=== PATIENT | female | born 1930 | race Caucasian/White ===

== ENCOUNTER 2020-09-05 20:22 | Observation (INO) | payer MEDICARE ==
[2020-09-05] MEDS ORDERED: KETOROLAC 15 MG/ML 1 ML VIAL IVP STA (20:44)
[2020-09-05] MEDS ORDERED: SODIUM CHLORIDE 0.9% 1,000 ML IV STA (20:44)
--- NOTE | 2020-09-05 20:47 | ED ---
General Adult HPI - General Source: patient, family Mode of arrival: wheelchair Limitations: no limitations <Anderson Tomlinson Milly - Last Filed: 09/05/20 20:58> <Jazmin Ricks Nerissa - Last Filed: 09/06/20 22:46> - General Chief complaint: Abdominal Pain Stated complaint: Side Pain Time Seen by Provider: 09/05/20 20:25 - History of Present Illness Initial comments: Dictation was produced using [employer] dictation software. please excuse any grammatical, word or spelling errors. This patient was cared for during a federal and state declared state of emergency secondary to Covid 19 Chief Complaint: 89-year-old female presents with right-sided flank pain History of Present Illness: Patient is an 89-year-old female she reports that she has history of kidney stones. Over the last 4 days she's been suffering from colicky right-sided flank pain. She went to [facility] where she was evaluated. She was sent home with antibiotics and by mouth analgesia. Patient states that her symptoms did not improve. She states that she has a sharp pain that causes her to be slightly nauseated and a little clammy in the skin. She states that last for several minutes and then donny. She is has been having c ontinuous episodes over the last 4 days. States that the pain is severe. No radiation of symptoms to the groin. Denies any constitutional symptoms. She believes that she was diagnosed with a kidney stone several years ago. She does not recall exactly when. The ROS documented in this emergency department record has been reviewed and confirmed by me. Those systems with pertinent positive or negative responses have been documented in the HPI. All other systems are other negative and/or noncontributory. PHYSICAL EXAM: General Impression: Alert and oriented x3, not in acute distress HEENT: Normocephalic atraumatic, extra-ocular movements intact, pupils equal and reactive to light bilaterally, mucous membranes moist. Cardiovascular: Heart regular rate and rhythm Chest: Able to complete full sentences, no retractions, no tachypnea Abdomen: abdomen soft, non-tender, non-distended, no organomegaly Musculoskeletal: Pulses present and equal in all extremities, no peripheral edema, no CVA tenderness Motor: no focal deficits noted Neurological: CN II-XII grossly intact, no focal motor or sensory deficits noted Skin: Intact with no visualized rashes Psych: Normal affect and mood ED course: 89-year-old female presents to the emergency department for flank pain. She's been having symptoms for 4 days. Patient's pain is described as colicky and severe. There is concern of kidney stones. Vital signs upon arrival are within acceptable limits. Patient states she's not having an attack currently. Patient care signed out to Dr. Ricks. (Anderson Tomlinson) - Related Data Home Medications Medication Instructions Recorded Confirmed traMADol HCL 50 mg PO Q6H PRN 09/05/20 09/05/20 Allergies Allergy/AdvReac Type Severity Reaction Status Date / Time hydrocodone AdvReac Nausea & Verified 09/05/20 23:03 Vomiting hydromorphone [From Dilaudid] AdvReac Nausea & Verified 09/05/20 23:03 Vomiting morphine AdvReac Nausea & Verified 09/05/20 23:03 Vomiting oxycodone AdvReac Nausea & Verified 09/05/20 23:03 Vomiting Review of Systems ROS Other: All systems not noted in ROS Statement are negative. <Anderson Tomlinson - Last Filed: 09/05/20 20:58> ROS Other: All systems not noted in ROS Statement are negative. <Jazmin Ricks - Last Filed: 09/06/20 22:46> ROS Statement: Those systems with pertinent positive or pertinent negative responses have been documented in the HPI. Past Medical History Past Medical History: No Reported History History of Any Multi-Drug Resistant Organisms: None Reported Past Surgical History: Unable to Obtain Past Psychological History: No Psychological Hx Reported Smoking Status: Never smoker Past Alcohol Use History: None Reported Past Drug Use History: None Reported <Anderson Tomlinson - Last Filed: 09/05/20 20:58> General Exam Limitations: no limitations <Anderson Tomlinson - Last Filed: 09/05/20 20:58> Course Vital Signs 09/05/20 09/05/20 09/05/20 20:23 22:11 23:00 Temperature 98.2 F Pulse Rate 77 77 68 Respiratory 22 16 16 Rate Blood Pressure 172/85 190/93 139/67 O2 Sat by Pulse 96 97 96 Oximetry Medical Decision Making - Lab Data Result diagrams: 09/06/20 07:02 09/06/20 07:02 <Ginette Ricksah Nerissa - Last Filed: 09/06/20 22:46> - Medical Decision Making Upon arrival patient is placed into room 1. A thorough history and physical exam was performed. Patient had been given Toradol by Dr. Tomlinson. She is reevaluated and reports that this has not helped her pain. She is then given a dose of fentanyl. I received the labs from [facility]. These are reviewed. I did repeat the patient's CT which fails to demonstrate any acute signs for the patient's pain. The patient is reevaluated and states that she did have resolution of her pain with the fentanyl however is concerned that when she goes home the pain will return. As the patient is failing outpatient therapy I did recommend admission for further workup and possible pain management options. Patient did agree to this. Spoke with Dr. Mata who accepted admission. Patient is awaiting a bed on the floor (Jazmin Ricks) - Lab Data Lab Results 09/05/20 09/05/20 09/05/20 Range/Units 20:44 20:44 20:44 WBC 10.9 H (3.8-10.6) k/uL RBC 4.69 (3.80-5.40) m/uL Hgb 14.3 (11.4-16.0) gm/dL Hct 43.5 (34.0-46.0) % MCV 92.8 (80.0-100.0) fL MCH 30.5 (25.0-35.0) pg MCHC 32.9 (31.0-37.0) g/dL RDW 12.6 (11.5-15.5) % Plt Count 180 (150-450) k/uL MPV 7.8 Neutrophils % 59 % Lymphocytes % 31 % Monocytes % 6 % Eosinophils % 2 % Basophils % 1 % Neutrophils # 6.4 (1.3-7.7) k/uL Lymphocytes # 3.4 (1.0-4.8) k/uL Monocytes # 0.6 (0-1.0) k/uL Eosinophils # 0.2 (0-0.7) k/uL Basophils # 0.1 (0-0.2) k/uL Sodium 141 (137-145) mmol/L Potassium 4.2 (3.5-5.1) mmol/L Chloride 105 (98-107) mmol/L Carbon Dioxide 25 (22-30) mmol/L Anion Gap 11 mmol/L BUN 19 H (7-17) mg/dL Creatinine 0.88 (0.52-1.04) mg/dL Est GFR (CKD-EPI)AfAm 68 (>60 ml/min/1.73 sqM) Est GFR (CKD-EPI)NonAf 59 (>60 ml/min/1.73 sqM) Glucose 82 (74-99) mg/dL Calcium 9.0 (8.4-10.2) mg/dL Urine Color Light Yellow Urine Appearance Clear (Clear) Urine pH 6.0 (5.0-8.0) Ur Specific [place] 1.008 (1.001-1.035) Urine Protein Negative (Negative) Urine Glucose (UA) Negative (Negative) Urine Ketones Negative (Negative) Urine Blood Negative (Negative) Urine Nitrite Negative (Negative) Urine Bilirubin Negative (Negative) Urine Urobilinogen <2.0 (<2.0) mg/dL Ur Leukocyte Esterase Trace H (Negative) Urine RBC 1 (0-5) /hpf Urine WBC 2 (0-5) /hpf Ur Squamous Epith Cells 1 (0-4) /hpf Amorphous Sediment Rare H (None) /hpf Urine Bacteria Rare H (None) /hpf Urine Mucus Rare H (None) /hpf Disposition <Anderson Tomlinson - Last Filed: 09/05/20 20:58> Is patient prescribed a controlled substance at d/c from ED?: No Decision to Admit Reason: Admit from EC Decision Date: 09/05/20 Decision Time: 23:12 <Jazmin Ricks - Last Filed: 09/06/20 22:46> Clinical Impression: Right flank pain, Lumbar facet arthropathy Disposition: ADMITTED IP TO THIS [facility] Condition: Stable
[2020-09-05 21:04] LABS: Basophils # (A) 0.1 k/uL (0-0.2); Basophils % (A) 1 %; Eosinophils # (A) 0.2 k/uL (0-0.7); Eosinophils % (A) 2 %; HCT 43.5 % (34.0-46.0); HGB 14.3 gm/dL (11.4-16.0); Lymphocytes # (A) 3.4 k/uL (1.0-4.8); Lymphocytes % (A) 31 %; MCH 30.5 pg (25.0-35.0); MCHC 32.9 g/dL (31.0-37.0); MCV 92.8 fL (80.0-100.0); Mean Platelet Volume 7.8; Monocytes # (A) 0.6 k/uL (0-1.0); Monocytes % (A) 6 %; Neutrophils # (A) 6.4 k/uL (1.3-7.7); Neutrophils % (A) 59 %; Platelet Count 180 k/uL (150-450); RBC 4.69 m/uL (3.80-5.40); RDW 12.6 % (11.5-15.5); WBC 10.9 k/uL (3.8-10.6)
[2020-09-05 21:11] LABS: Potassium 4.2 mmol/L (3.5-5.1)
[2020-09-05] MEDS ORDERED: fentaNYL (PF) 50 MCG/ML 2 ML AMP IVP STA (22:00)
[2020-09-05 22:16] LABS: Amorphous Sediment,Urine Rare /hpf; Appearance,Urine Clear (Clear); Bacteria,Urine Rare /hpf; Bilirubin,Urine Negative (Negative); Blood,Urine Negative (Negative); Color,Urine Light Yellow; Glucose,Urine (UA) Negative (Negative); Ketones,Urine Negative (Negative); Leukocyte Esterase,Urine Trace (Negative); Mucus,Urine Rare /hpf; Nitrite,Urine Negative (Negative); Protein,Urine Negative (Negative); RBC,Urine 1 /hpf (0-5); Specific Gravity,Urine 1.008 (1.001-1.035); Squamous Epithelial Cell,Urine 1 /hpf (0-4); Urobilinogen,Urine <2.0 mg/dL (<2.0); WBC,Urine 2 /hpf (0-5)
--- NOTE | 2020-09-05 22:54 | CT ---
EXAMINATION TYPE: CT abdomen pelvis w con DATE OF EXAM: 09/05/2020 COMPARISON: 10/27/2009 HISTORY: Side pain, radiating into back, difficulty walking. Hx back sx. CT DLP: 1208.6 mGycm Automated exposure control for dose reduction was used. CONTRAST: Performed with IV Contrast, patient injected with 100 mL of Isovue 300. Images obtained from the diaphragm to the floor the pelvis with IV contrast. There is minimal subsegmental atelectasis at the lung bases. There is no pleural effusion. Heart size is normal. There is no pericardial effusion. Liver spleen pancreas appear intact. The bile ducts are not dilated. There are clips from cholecystectomy. Stomach is intact. There is 8mm calcification of the diaphragmatic pleura on the right side adjacent to the liver not ch anged compared to old exam. There is no adrenal mass. Kidneys show satisfactory contrast opacification. There is no hydronephrosi s. Delayed images show normal renal excretion. Ureters are not dilated. There is no retroperitoneal a denopathy. There is 3 cm fat density mass on the anterior abdomen consistent with umbilical hernia fuentes rgery. Bladder distends smoothly. There are numerous diverticula in the sigmoid colon. I see no diverticulit is. There are surgical clips at the right colon. There is no ascites. There is no free air. There is a first-degree L5-S1 spondylolisthesis. There is L5 spondylolysis. There is no lumbar compre ssion fracture. There is disc space narrowing from L3 to S1. The bony pelvis is intact. Hip joints ar e intact. There is right hip prosthesis. IMPRESSION: Moderate colonic diverticulosis without diverticulitis. Fat density mass posterior to the umbilicus c ould relate to surgery or lipoma. There is right hemicolectomy. There is no sign of acute abdomen and pelvis.
[2020-09-05] MEDS ORDERED: DOCUSATE 100 MG CAP PO PRN (23:12)
[2020-09-05] MEDS ORDERED: Acetaminophen-Codeine 300-30mg TAB PO PRN (23:12)
[2020-09-05] MEDS ORDERED: MAGNESIUM HYDROXIDE 2,400 MG/10 ML CUP PO PRN (23:12)
[2020-09-05] MEDS ORDERED: KETOROLAC 15 MG/ML 1 ML VIAL IVP PRN (23:12)
[2020-09-05] MEDS ORDERED: NALOXONE 0.4 MG/ML 1 ML VIAL IV PRN (23:12)
[2020-09-05] MEDS ORDERED: IBUPROFEN 400 MG TAB PO PRN (23:12)
[2020-09-06] MEDS ORDERED: HYDROmorphone 1 MG/ML 1 ML SYRINGE IVP STA (00:24)
[2020-09-06] MEDS ORDERED: HYDROcodone/APAP 5-325MG 1 EACH TAB PO PRN (00:24)
[2020-09-06] MEDS ORDERED: ONDANSETRON 4 MG/2 ML VIAL IVP PRN (00:25)
[2020-09-06 07:26] LABS: Basophils % (A) 1 %; Eosinophils # (A) 0.2 k/uL (0-0.7); Eosinophils % (A) 3 %; HCT 42.5 % (34.0-46.0); HGB 13.8 gm/dL (11.4-16.0); Lymphocytes # (A) 2.9 k/uL (1.0-4.8); Lymphocytes % (A) 39 %; MCH 30.5 pg (25.0-35.0); MCHC 32.5 g/dL (31.0-37.0); Mean Platelet Volume 7.8; Monocytes # (A) 0.5 k/uL (0-1.0); Monocytes % (A) 7 %; Neutrophils # (A) 3.7 k/uL (1.3-7.7); Neutrophils % (A) 49 %; Platelet Count 158 k/uL (150-450); RBC 4.52 m/uL (3.80-5.40); WBC 7.4 k/uL (3.8-10.6)
[2020-09-06 07:45] LABS: Calcium 8.6 mg/dL (8.4-10.2); Potassium 4.4 mmol/L (3.5-5.1)
[2020-09-06 08:33] VITALS: RESP 19
--- NOTE | 2020-09-06 12:32 | P.HPIM ---
History of Present Illness This is a pleasant 89 years old female with no significant past medical history. Presents with right flank pain for 2 days She was at [facility] for lumbar radiculopathy with the same pain. Patient states that she has right flank to right lower back sharp pain that started , reflecting/10 nonradiating pain with no associated weakness or numbness. She went to [facility] where she was treated there over 2 days and on Sunday she is being discharged at that time her pain was 7/10. And Sunday her pain subsided, However to come back later on as 10 so she decided to come to [facility]. Currently patient rates her pain as 0/10. Patient denies any weakness or numbness or urine or bowel incontinence. She denies any other symptoms no chest pain or dyspnea or headache or weakness However patient complains from chronic low back pain for many years but different sensation at the same level of her right flank/low back pain she is coming on with, she sees a physician but she cannot remember the name for his low back pain and she has taken pain injection before Vitals are stable. Labs are unremarkable including CBC, INR, BMP, urine analysis. Coronavirus not detected CT of the abdomen and pelvis: No hydronephrosis, kidneys show satisfactory contrast opacification. No adrenal mass. Normal renal excretion. Ureters are not dilated. Diverticulosis without diverticulitis. There is L5 spondylolysis and L5-S1 spondylolisthesis. No compression fracture. Disc space narrowing from L3 to S1. Right flank pain History of back pain and radiculopathy Review of Systems CONSTITUTIONAL: No fever, no malaise, no fatigue. HEENT: No recent visual problems or hearing problems. Denied any sore throat. CARDIOVASCULAR: No orthopnea, PND, no palpitations, no syncope. PULMONARY: No shortness of breath, no cough, no hemoptysis. GASTROINTESTINAL: No diarrhea, no nausea, no vomiting, no abdominal pain. Normoactive bowel sounds. NEUROLOGICAL: No headaches, no weakness, no numbness. HEMATOLOGICAL: Denies any bleeding or petechiae. GENITOURINARY: Denies any burning micturition, frequency, or urgency. MUSCULOSKELETAL/RHEUMATOLOGICAL: Denies any joint pain, swelling, or any muscle pain. ENDOCRINE: Denies any polyuria or polydipsia. Past Medical History Past Medical History: No Reported History History of Any Multi-Drug Resistant Organisms: None Reported Past Surgical History: Section, Cholecystectomy, Hysterectomy, Orthopedic Surgery Additional Past Surgical History / Comment(s): Left hip, right shoulder, right middle finger, ear surgery Past Anesthesia/Blood Transfusion Reactions: No Reported Reaction Past Psychological History: No Psychological Hx Reported Smoking Status: Never smoker Past Alcohol Use History: None Reported Past Drug Use History: None Reported Medications and Allergies Home Medications Medication Instructions Recorded Confirmed Type traMADol HCL 50 mg PO Q6H PRN 09/05/20 09/05/20 History Allergies Allergy/AdvReac Type Severity Reaction Status Date / Time hydrocodone AdvReac Nausea & Verified 09/05/20 23:03 Vomiting hydromorphone [From Dilaudid] AdvReac Nausea & Verified 09/05/20 23:03 Vomiting morphine AdvReac Nausea & Verified 09/05/20 23:03 Vomiting oxycodone AdvReac Nausea & Verified 09/05/20 23:03 Vomiting Physical Exam Vitals: Vital Signs Temp Pulse Pulse Resp BP BP Pulse Ox 09/06/20 08:00 97.8 F 72 19 131/74 93 L 09/06/20 00:05 98.3 F 72 20 183/88 96 09/05/20 23:00 68 16 139/67 96 09/05/20 22:11 77 16 190/93 97 09/05/20 20:23 98.2 F 77 22 172/85 96 Intake and Output 09/05/20 09/06/20 09/06/20 22:59 06:59 14:59 Other: Weight 83.007 kg 83.007 kg GENERAL: The patient is alert and oriented x3, not in any acute distress. Well developed, well nourished. HEENT: Pupils are round and equally reacting to light. EOMI. No scleral icterus. No conjunctival pallor. Normocephalic, atraumatic. No pharyngeal erythema. No thyromegaly. CARDIOVASCULAR: S1 and S2 present. No murmurs, rubs, or gallops. PULMONARY: Chest is clear to auscultation, no wheezing or crackles. ABDOMEN: Soft, nontender, nondistended, normoactive bowel sounds. No palpable organomegaly. MUSCULOSKELETAL: No joint swelling or deformity. EXTREMITIES: No cyanosis, clubbing, or pedal edema. NEUROLOGICAL: Gross neurological examination did not reveal any focal deficits. SKIN: No rashes. no petechiae. Results CBC & Chem 7: 09/06/20 07:02 09/06/20 07:02 Labs: Abnormal Lab Results - Last 24 Hours (Table) 09/05/20 09/05/20 09/05/20 Range/Units 20:44 20:44 20:44 WBC 10.9 H (3.8-10.6) k/uL BUN 19 H (7-17) mg/dL Ur Leukocyte Esterase Trace H (Negative) Amorphous Sediment Rare H (None) /hpf Urine Bacteria Rare H (None) /hpf Urine Mucus Rare H (None) /hpf 09/06/20 Range/Units 07:02 WBC (3.8-10.6) k/uL BUN 20 H (7-17) mg/dL Ur Leukocyte Esterase (Negative) Amorphous Sediment (None) /hpf Urine Bacteria (None) /hpf Urine Mucus (None) /hpf Thrombosis Risk Factor Assmnt - Choose All That Apply Any of the Below Risk Factors Present?: No Other Risk Factors: Yes Each Risk Factor Represents 3 Points: Age 75 years or older Other congenital or acquired thrombophilia - If yes, enter type in comment: No Thrombosis Risk Factor Assessment Total Risk Factor Score: 3 Thrombosis Risk Factor Assessment Level: Moderate Risk Assessment and Plan Assessment: Right low back/flank pain, mostly related to L5-S1 spondylytic changes. Now completely resolved. Check renal ultrasound and orthopedic consult Degenerative disc disease Plan: This is a pleasant 89 years old female who presents with right flank/low back pain. Most likely it is related to her degenerative low back pain of L5 and S1 vertebral disc disease. Continue with pain management however patient currently is asymptomatic However we are going to check renal ultrasound although it looks most likely musculoskeletal pain Labs and medication were reviewed.. Continue same treatment. Continue with symptomatic treatment. Resume home medication. Monitor lytes and vitals. DVT and GI prophylaxis. Further recommendationsas per clinical course of the patient DVT prophylaxis: Subcutaneous heparin GI Prophylaxis: Pepcid PT/OT: Pending Prognosis is guarded
--- NOTE | 2020-09-06 13:27 | P.CNOR ---
History of Present Illness - [facility] Consult date: 09/06/20 Requesting physician: Bry E Mynor Consult reason: low back pain (Acute right-sided flank pain, improved) History of present illness: Patient is a very pleasant 89-year-old female who is seen and examined at bedside for further evaluation of right-sided flank pain. She had an episode of severe flank pain which started this past she presented to [facility] for further evaluation. Her pain had improved and she was discharged home. Her pain became severe yesterday, 09/05/2020, and she presented to [facility] for further evaluation. During her admission to the hospital her symptoms have completely resolved. She states her current pain as 0/10. She does not have any radiating pain. She denies any lower extremity weakness and radiculopathy bilaterally. Her back pain is currently well controlled. She states she does have a history of surgical intervention of her lumbar spine twice previously. She also admits to previous neurostimulator placement with removal of neurostimulator. She had follow-up with pain management approximately 1 year ago and had some injections at that time. Medicine is planning for the patient is discharged home today. Patient states she does not wish to have any surgical intervention or lumbosacral spine. She would be willing to follow further with pain management. Past Medical History Past Medical History: No Reported History History of Any Multi-Drug Resistant Organisms: None Reported Past Surgical History: Section, Cholecystectomy, Hysterectomy, Orthopedic Surgery Additional Past Surgical History / Comment(s): Left hip, right shoulder, right middle finger, ear surgery Past Anesthesia/Blood Transfusion Reactions: No Reported Reaction Past Psychological History: No Psychological Hx Reported Smoking Status: Never smoker Past Alcohol Use History: None Reported Past Drug Use History: None Reported Medications and Allergies Home Medications Medication Instructions Recorded Confirmed Type traMADol HCL 50 mg PO Q6H PRN 09/05/20 09/05/20 History Allergies Allergy/AdvReac Type Severity Reaction Status Date / Time hydrocodone AdvReac Nausea & Verified 09/05/20 23:03 Vomiting hydromorphone [From Dilaudid] AdvReac Nausea & Verified 09/05/20 23:03 Vomiting morphine AdvReac Nausea & Verified 09/05/20 23:03 Vomiting oxycodone AdvReac Nausea & Verified 09/05/20 23:03 Vomiting Physical Examination Physical exam: Patient is awake, alert, and oriented 3 Vital signs stable Good chest excursion with deep inspiration and expiration Abdomen soft nontender Examination of lumbar spine reveals skin is intact with no abrasions, lacerations, or bruises; no erythema, purulence or signs of infection Evidence of well-healed incision along the midline of the lumbar spine Dorsiflexion, plantarflexion, and extensor hallucis longus positive sustained bilaterally Lower extremity strength 5/5 bilaterally Straight leg test negative bilateral lower extremities Negative Lasegue's test bilaterally No signs or symptoms of DVT; no calf pain No pain with internal and external rotation of the hips bilaterally Neurovascularly intact Results Pertinent studies: CT the abdomen and pelvis taken on 09/05/2020: L2-3 disc protrusion and facet arthropathy resulting in spinal canal stenosis and L3-4 significant asymmetric degenerative disc disease; L4-5 significant asymmetric degenerative disc disease and vacuum disc phenomenon; L5-S1 spondylolisthesis, spondylolysis, degenerative disc disease, and vacuum disc phenomenon; degenerative scoliosis; during levels of spinal canal stenosis L3-S1; evidence of right total hip arthroplasty; evidence of right hemicolectomy; no sign of acute abdomen or pelvis - Labs Labs: Abnormal Lab Results - Last 24 Hours (Table) 09/05/20 09/05/20 09/05/20 Range/Units 20:44 20:44 20:44 WBC 10.9 H (3.8-10.6) k/uL BUN 19 H (7-17) mg/dL Ur Leukocyte Esterase Trace H (Negative) Amorphous Sediment Rare H (None) /hpf Urine Bacteria Rare H (None) /hpf Urine Mucus Rare H (None) /hpf 09/06/20 Range/Units 07:02 WBC (3.8-10.6) k/uL BUN 20 H (7-17) mg/dL Ur Leukocyte Esterase (Negative) Amorphous Sediment (None) /hpf Urine Bacteria (None) /hpf Urine Mucus (None) /hpf H & H 09/05/20 09/06/20 Range/Units 20:44 07:02 Hgb 14.3 13.8 (11.4-16.0) gm/dL Hct 43.5 42.5 (34.0-46.0) % Result Diagrams: 09/06/20 07:02 09/06/20 07:02 Assessment and Plan Assessment: Assessment: Right-sided flank pain completely resolved History of lumbar surgery 2 with history of neurostimulator placement and removal Degenerative scoliosis L5 spondylolysis L5-S1 spondylolisthesis Lumbar spinal canal stenosis Lumbar facet arthropathy Lumbar degenerative disc disease History right total hip arthroplasty (1) Lumbar degenerative disc disease Current Visit: Yes Status: Acute Code(s): M51.36 - OTHER INTERVERTEBRAL DISC DEGENERATION, LUMBAR REGION SNOMED Code(s): 95853839 (2) Degenerative scoliosis in adult patient Current Visit: Yes Status: Acute Code(s): M41.80 - OTHER FORMS OF SCOLIOSIS, SITE UNSPECIFIED SNOMED Code(s): 442586544 (3) Spondylolysis of lumbar region Current Visit: Yes Status: Acute Code(s): M43.06 - SPONDYLOLYSIS, LUMBAR REGION SNOMED Code(s): 654865519 (4) Spondylolisthesis, lumbosacral region Current Visit: Yes Status: Acute Code(s): M43.17 - SPONDYLOLISTHESIS, LUMBOSACRAL REGION SNOMED Code(s): 141009118 (5) Lumbar spinal stenosis Current Visit: Yes Status: Acute Code(s): M48.061 - SPINAL STENOSIS, LUMBAR REGION WITHOUT NEUROGENIC ARYA SNOMED Code(s): 86607396 (6) Lumbar facet arthropathy Current Visit: Yes Status: Acute Code(s): M47.816 - SPONDYLOSIS W/O MYELOPATHY OR RADICULOPATHY, LUMBAR REGION SNOMED Code(s): 513343207 (7) History of lumbar surgery Current Visit: Yes Status: Acute Code(s): Z98.890 - OTHER SPECIFIED POST PROCEDURAL STATES SNOMED Code(s): 960630332 (8) History of total right hip arthroplasty Current Visit: Yes Status: Acute Code(s): Z96.641 - PRESENCE OF RIGHT ARTIFICIAL HIP JOINT SNOMED Code(s): 107528752592 Plan: Plan: 1. After reviewing of imaging, physical examination the patient, and further discussion with the patient, we're not currently planning for any surgical intervention in regards to her lumbosacral spine. She does have significant degenerative changes throughout her lumbar spine with spondylolysis, spondylolisthesis, degenerative scoliosis, degenerative disc disease, facet ar thropathy, and spinal canal stenosis. She states she has previously undergone surgical intervention at her lumbar spine multiple times and states given her age she does not wish to discuss the possibility of any surgical intervention at her lumbar spine. Plus, her symptoms have completely resolved. She would be willing to work to through further evaluation with pain management. We did discuss we will plan for consultation with pain management prior to her discharge home today so they may help set up scheduling outpatient treatment and evaluation. Patient feels she is ready for discharge home today. From orthopedic spine standpoint, patient is cleared for discharge. We will plan have her follow up on an as-needed basis following her discharge from the hospital. 2. Patient currently waiting for consultation by pain management. 3. Patient will continue be seen and examined by medicine who is planning for discharge home today. Time with Patient: Greater than 30 (Including obtaining history, physical examination, reviewing of imaging, and dictation.)
--- NOTE | 2020-09-06 14:13 | US ---
EXAMINATION TYPE: US renals and bladder DATE OF EXAM: 09/06/2020 COMPARISON: CT 09/05/2020 CLINICAL HISTORY: right flank pain. Right flank pain EXAM MEASUREMENTS: Right Kidney: 9.5 x 4.0 x 3.8 cm Left Kidney: 9.4 x 3.7 x 2.9 cm Right Kidney: No hydronephrosis or masses seen, mild extrarenal pelvis noted incidentally Left Kidney: No hydronephrosis or masses seen Bladder: Anechoic Bilateral Jets seen: No just left jet. There is no evidence for hydronephrosis at this point in time. No nephrolithiasis is seen. No jose alberto s are identified. Cortical medullary differentiation is maintained. The urinary bladder is anechoic. IMPRESSION:
[2020-09-06 15:29] VITALS: BP 137/80; PULSE 69; TEMP 97.9
[2020-09-06] MEDS ORDERED: HEPARIN SODIUM,PORCINE 5,000 UNIT/ML 1 ML VIAL SQ SCH (21:00)
[2020-09-06] MEDS ORDERED: FAMOTIDINE 20 MG/2 ML VIAL IV SCH (21:00)
== END 2020-09-06 16:01 | disposition home or self-care (01) ==
LOC: EC 20:22 → 4SSUR 23:12
PROVIDERS: ADMIT Internal Medicine; ATTEND Internal Medicine
DX: R10.9 Unspecified abdominal pain (principal); M43.17 Spondylolisthesis, lumbosacral region; K57.90 Diverticulosis of intestine, part unspecified, without perforation or abscess without bleeding; M41.80 Other forms of scoliosis, site unspecified; M47.16 Other spondylosis with myelopathy, lumbar region; M47.26 Other spondylosis with radiculopathy, lumbar region; M48.061 Spinal stenosis, lumbar region without neurogenic claudication; M51.16 Intervertebral disc disorders with radiculopathy, lumbar region; M51.06 Intervertebral disc disorders with myelopathy, lumbar region; G89.29 Other chronic pain; Z88.5 Allergy status to narcotic agent; Z96.641 Presence of right artificial hip joint; Z90.710 Acquired absence of both cervix and uterus; Z87.442 Personal history of urinary calculi; Z20.822 Contact with and (suspected) exposure to COVID-19
CPT/HCPCS: 96375 ×2; 96374; 99285; 36415; 80048 ×2; 85025 ×2; 81001; 87635; 76770; 74177; G0378 ×2; J2405; J3010; J1170; J1885; Q9967

== ENCOUNTER 2020-09-09 16:11 | Emergency (ER) | payer MEDICARE ==
[2020-09-09 16:25] VITALS: TEMP 98.1
[2020-09-09] MEDS ORDERED: KETOROLAC 15 MG/ML 1 ML VIAL IM STA (17:01)
[2020-09-09] MEDS ORDERED: HYDROmorphone 0.5 MG/0.5 ML SYRINGE IM STA (18:30)
[2020-09-09] MEDS ORDERED: ONDANSETRON ODT 4 MG TAB PO STA (18:30)
--- NOTE | 2020-09-09 19:27 | ED ---
Back Pain HPI - General Source: patient Limitations: no limitations <Selina Covington - Last Filed: 09/09/20 20:02> <Jazmin Ricks - Last Filed: 09/10/20 13:31> - General Chief Complaint: Back Pain/Injury Stated Complaint: Revisit - Flank Pain Time Seen by Provider: 09/09/20 16:41 - History of Present Illness Initial Comments: 89-year-old feel presenting for right lower back pain. Patient states that she was recently at 2 hospitals right lower back pain she states they cannot find out what is wrong but think it is her muscles she states that she was fine until 1 PM today. Patient states that it is a sharp stabbing pain that increases with rotation or touching the area. She states she has been applying a heating pad. Patient states she has a lot of ALLERGIES to pain medications. Patient denies any hematuria fevers she denies any falls or trauma she denies a weakness sensation deficits of the lower extremities she denies any IV drug use cancer. She denies abdominal pain nausea vomiting chest pain or shortness of breath. Patient no additional complaints and upon arrival she appears well nontoxic (Selina Covington) - Related Data Home Medications Medication Instructions Recorded Confirmed traMADol HCL 50 mg PO Q6H PRN 09/05/20 09/05/20 Allergies Allergy/AdvReac Type Severity Reaction Status Date / Time hydrocodone AdvReac Nausea & Verified 09/09/20 16:26 Vomiting hydromorphone [From Dilaudid] AdvReac Nausea & Verified 09/09/20 16:26 Vomiting morphine AdvReac Nausea & Verified 09/09/20 16:26 Vomiting oxycodone AdvReac Nausea & Verified 09/09/20 16:26 Vomiting Review of Systems ROS Other: All systems not noted in ROS Statement are negative. <Selina Covington - Last Filed: 09/09/20 20:02> ROS Other: All systems not noted in ROS Statement are negative. <Jazmin Ricks - Last Filed: 09/10/20 13:31> ROS Statement: Those systems with pertinent positive or pertinent negative responses have been documented in the HPI. Past Medical History Past Medical History: No Reported History History of Any Multi-Drug Resistant Organisms: None Reported Past Surgical History: Section, Cholecystectomy, Hysterectomy, Orthopedic Surgery Additional Past Surgical History / Comment(s): Left hip, right shoulder, right middle finger, ear surgery Past Anesthesia/Blood Transfusion Reactions: No Reported Reaction Past Psychological History: No Psychological Hx Reported Smoking Status: Never smoker Past Alcohol Use History: None Reported Past Drug Use History: None Reported <Selina Covington - Last Filed: 09/09/20 20:02> General Exam Limitations: no limitations <Selina Covington - Last Filed: 09/09/20 20:02> - General Exam Comments Initial Comments: General: The patient is awake and alert, in no distress, and does not appear acutely ill. Eye: Pupils are equal, round and reactive to light, extra-ocular movements are intact. No nystagmus. There is normal conjunctiva bilaterally. No signs of icterus. Ears, nose, mouth and throat: There are moist mucous membranes and no oral lesions. Neck: The neck is supple, there is no tenderness or JVD. Cardiovascular: There is a regular rate and rhythm. No murmur, rub or gallop is appreciated. Respiratory: Lungs are clear to auscultation, respirations are non-labored, breath sounds are equal. No wheezes, stridor, rales, or rhonchi. Gastrointestinal: Soft, non-distended, non-tender abdomen without masses or organomegaly noted. There is no rebound or guarding present. No CVA tenderness. Musculoskeletal: Inspection of the cervical thoracic and lumbar spine there is no lesions. No midline tenderness patient has paraspinal tenderness along the lower drastic upper lumbar area. Normal ROM, no tenderness of the UE and LE bilaterally. Strength 5/5 of lower extremities bilaterally. Sensation intact of the lower external nares bilaterally including the saddle region. Radial and DP pulses equal bilaterally 2+. Neurological: A&O x 3. CN II-XII intact grossly, There are no obvious motor or sensory deficits. Coordination appears grossly intact. Speech is normal. Skin: Skin is warm and dry and no rashes or lesions are noted. Psychiatric: Cooperative, appropriate mood & affect, normal judgment. (Selina Covington) Course Vital Signs 09/09/20 09/09/20 16:23 19:50 Temperature 98.1 F Pulse Rate 101 H 83 Respiratory 20 16 Rate Blood Pressure 144/105 148/85 O2 Sat by Pulse 96 95 Oximetry Medical Decision Making <Selina Covington - Last Filed: 09/09/20 20:02> <Jazmin Ricks - Last Filed: 09/10/20 13:31> - Medical Decision Making No falls or trauma. No skin changes/ no vesicular lesions/redness. Patient has no midline tenderness, patient is neurovascularly intact. Patient's pain controlled after one IM dose of Dilaudid. After discussing case with attending provider refill patient is stable for discharge with outpatient pain management. Patient agreeable. 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 (Selina Covington) I was available for consultation in the emergency department. The history and physical exam were done by the midlevel provider. I was consulted for this patients care. I reviewed the case with the midlevel provider and based on their presentation of the patient, I agree with the assessment, medical decision making and plan of care as documented. Chart was dictated using [employer] dictation software. Attempts were made to correct any dictation errors however some typographical errors may persist. Patient was seen during a national state of emergency due to the Covid-19 pandemic. (Jazmin Ricks) Disposition Is patient prescribed a controlled substance at d/c from ED?: No Time of Disposition: 19:27 <Selina Covington - Last Filed: 09/09/20 20:02> <Jazmin Ricks - Last Filed: 09/10/20 13:31> Clinical Impression: Back pain Disposition: HOME SELF-CARE Condition: Good Instructions (If sedation given, give patient instructions): Acute Low Back Pain (ED) Additional Instructions: Please use medication as discussed. Please follow-up with family doctor in the next 2 days. Please return to emergency room if the symptoms increase or worsen or for any other concerns. Referrals: Lv Sánchez DO [Primary Care Provider] - 1-2 days
[2020-09-09 19:52] VITALS: BP 148/85; PULSE 83; RESP 16
== END 2020-09-09 19:53 | disposition home or self-care (01) ==
LOC: EC 16:11
DX: M54.5 Low back pain (principal)
CPT/HCPCS: 99283; 96372; J1885; J1170

== ENCOUNTER 2020-09-11 21:41 | Emergency (ER) | payer MEDICARE ==
[2020-09-11] MEDS ORDERED: HYDROmorphone 1 MG/ML 1 ML SYRINGE IVP STA (22:14)
[2020-09-11] MEDS ORDERED: ONDANSETRON 4 MG/2 ML VIAL IVP STA (22:14)
[2020-09-11] MEDS ORDERED: diphenhydrAMINE 50 MG/ML 1 ML VIAL IVP STA (22:14)
[2020-09-11] MEDS ORDERED: SODIUM CHLORIDE 0.9% 1,000 ML IV STA (22:14)
--- NOTE | 2020-09-11 22:17 | ED ---
General Adult HPI - General Chief complaint: Abdominal Pain Stated complaint: Abd Pain Source: patient, RN notes reviewed Mode of arrival: ambulatory Limitations: no limitations - History of Present Illness Initial comments: Patient is an 89-year-old female presents to emergency department complaining of right-sided flank pain. She'll that she went in and out of the emergency room with intractable pain. She does have an MRI scheduled for the . She does take at home tramadol but did not take any today until the pain started and got too great. She took 4 tramadol home. She was standing up in the room walking around trying to relieve the pain. Daughter noted that this is the worst it has been. She was not diagnosed with a kidney stone in any of her emergency dep artment visit. She stated that the pain was in her right side 10 out of 10 constant with no relief. 90 chest pain shortness of breath headache vomiting diarrhea constipation fever fatigue chills. - Related Data Home Medications Medication Instructions Recorded Confirmed traMADol HCL 50 mg PO Q6H PRN 09/05/20 09/05/20 Allergies Allergy/AdvReac Type Severity Reaction Status Date / Time hydrocodone AdvReac Nausea & Verified 09/11/20 21:52 Vomiting hydromorphone [From Dilaudid] AdvReac Nausea & Verified 09/11/20 21:52 Vomiting morphine AdvReac Nausea & Verified 09/11/20 21:52 Vomiting oxycodone AdvReac Nausea & Verified 09/11/20 21:52 Vomiting Review of Systems ROS Statement: Those systems with pertinent positive or pertinent negative responses have been documented in the HPI. ROS Other: All systems not noted in ROS Statement are negative. Past Medical History Past Medical History: No Reported History Additional Past Medical History / Comment(s): kidney function elevations, History of Any Multi-Drug Resistant Organisms: None Reported Past Surgical History: Section, Cholecystectomy, Hysterectomy, Orthopedic Surgery Additional Past Surgical History / Comment(s): Left hip, right shoulder, right middle finger, ear surgery Past Anesthesia/Blood Transfusion Reactions: No Reported Reaction Past Psychological History: No Psychological Hx Reported Smoking Status: Never smoker Past Alcohol Use History: None Reported Past Drug Use History: None Reported General Exam Limitations: no limitations General appearance: alert, in distress Head exam: Present: atraumatic, normocephalic, normal inspection Eye exam: Present: normal appearance, PERRL, EOMI. Absent: scleral icterus, conjunctival injection, periorbital swelling ENT exam: Present: normal exam, mucous membranes moist Neck exam: Present: normal inspection. Absent: tenderness, meningismus, lymphadenopathy Respiratory exam: Present: normal lung sounds bilaterally. Absent: respiratory distress, wheezes, rales, rhonchi, stridor Cardiovascular Exam: Present: regular rate, normal rhythm, normal heart sounds. Absent: systolic murmur, diastolic murmur, rubs, gallop, clicks GI/Abdominal exam: Present: soft, normal bowel sounds. Absent: distended, tenderness, guarding, rebound, rigid Extremities exam: Present: normal inspection, full ROM, normal capillary refill. Absent: tenderness, pedal edema, joint swelling, calf tenderness Back exam: Present: normal inspection, CVA tenderness (R) Neurological exam: Present: alert, oriented X3, CN II-XII intact Psychiatric exam: Present: normal affect, normal mood Skin exam: Present: warm, dry, intact, normal color. Absent: rash Course Vital Signs 09/11/20 09/11/20 09/11/20 21:45 22:47 23:55 Temperature 98.6 F Pulse Rate 88 77 Respiratory 18 20 16 Rate Blood Pressure 209/107 147/69 O2 Sat by Pulse 95 93 L Oximetry Medical Decision Making - Medical Decision Making 81-year-old female complaining of right flank pain. Labs, 1 L normal saline bolus, 1 mg of Dilaudid, 4 mg Zofran, 50 g Benadryl ordered.. Labs unremarkable. Case discussed with Dr. Farrell, decided patient could discharge home with follow-up to primary care and her scheduled MRI. - Lab Data Result diagrams: 09/11/20 22:44 09/11/20 22:44 Lab Results 09/11/20 09/11/20 09/11/20 Range/Units 22:44 22:44 22:44 WBC 11.4 H (3.8-10.6) k/uL RBC 5.37 (3.80-5.40) m/uL Hgb 16.2 H (11.4-16.0) gm/dL Hct 50.2 H (34.0-46.0) % MCV 93.5 (80.0-100.0) fL MCH 30.2 (25.0-35.0) pg MCHC 32.3 (31.0-37.0) g/dL RDW 13.1 (11.5-15.5) % Plt Count 223 (150-450) k/uL MPV 8.1 Neutrophils % 62 % Lymphocytes % 28 % Monocytes % 6 % Eosinophils % 3 % Basophils % 1 % Neutrophils # 7.0 (1.3-7.7) k/uL Lymphocytes # 3.2 (1.0-4.8) k/uL Monocytes # 0.6 (0-1.0) k/uL Eosinophils # 0.3 (0-0.7) k/uL Basophils # 0.1 (0-0.2) k/uL Sodium 139 (137-145) mmol/L Potassium 5.0 (3.5-5.1) mmol/L Chloride 102 (98-107) mmol/L Carbon Dioxide 24 (22-30) mmol/L Anion Gap 13 mmol/L BUN 17 (7-17) mg/dL Creatinine 1.04 (0.52-1.04) mg/dL Est GFR (CKD-EPI)AfAm 56 (>60 ml/min/1.73 sqM) Est GFR (CKD-EPI)NonAf 48 (>60 ml/min/1.73 sqM) Glucose 104 H (74-99) mg/dL Plasma Lactic Acid Ari 3.9 H* (0.7-2.0) mmol/L Calcium 10.1 (8.4-10.2) mg/dL Total Bilirubin 0.6 (0.2-1.3) mg/dL AST 56 H (14-36) U/L ALT 44 H (4-34) U/L Alkaline Phosphatase 53 (38-126) U/L Creatine Kinase 259 H (30-135) U/L Total Protein 8.2 (6.3-8.2) g/dL Albumin 4.9 (3.5-5.0) g/dL Urine Color Urine Appearance (Clear) Urine pH (5.0-8.0) Ur Specific Sc[place]ey (1.001-1.035) Urine Protein (Negative) Urine Glucose (UA) (Negative) Urine Ketones (Negative) Urine Blood (Negative) Urine Nitrite (Negative) Urine Bilirubin (Negative) Urine Urobilinogen (<2.0) mg/dL Ur Leukocyte Esterase (Negative) Urine RBC (0-5) /hpf Urine WBC (0-5) /hpf Ur Squamous Epith Cells (0-4) /hpf Hyaline Casts (0-2) /lpf Urine Mucus (None) /hpf 09/11/20 Range/Units 23:55 WBC (3.8-10.6) k/uL RBC (3.80-5.40) m/uL Hgb (11.4-16.0) gm/dL Hct (34.0-46.0) % MCV (80.0-100.0) fL MCH (25.0-35.0) pg MCHC (31.0-37.0) g/dL RDW (11.5-15.5) % Plt Count (150-450) k/uL MPV Neutrophils % % Lymphocytes % % Monocytes % % Eosinophils % % Basophils % % Neutrophils # (1.3-7.7) k/uL Lymphocytes # (1.0-4.8) k/uL Monocytes # (0-1.0) k/uL Eosinophils # (0-0.7) k/uL Basophils # (0-0.2) k/uL Sodium (137-145) mmol/L Potassium (3.5-5.1) mmol/L Chloride (98-107) mmol/L Carbon Dioxide (22-30) mmol/L Anion Gap mmol/L BUN (7-17) mg/dL Creatinine (0.52-1.04) mg/dL Est GFR (CKD-EPI)AfAm (>60 ml/min/1.73 sqM) Est GFR (CKD-EPI)NonAf (>60 ml/min/1.73 sqM) Glucose (74-99) mg/dL Plasma Lactic Acid Ari (0.7-2.0) mmol/L Calcium (8.4-10.2) mg/dL Total Bilirubin (0.2-1.3) mg/dL AST (14-36) U/L ALT (4-34) U/L Alkaline Phosphatase (38-126) U/L Creatine Kinase (30-135) U/L Total Protein (6.3-8.2) g/dL Albumin (3.5-5.0) g/dL Urine Color Yellow Urine Appearance Clear (Clear) Urine pH 6.0 (5.0-8.0) Ur Specific [place] 1.027 (1.001-1.035) Urine Protein Trace H (Negative) Urine Glucose (UA) Negative (Negative) Urine Ketones 1+ H (Negative) Urine Blood Trace H (Negative) Urine Nitrite Negative (Negative) Urine Bilirubin Negative (Negative) Urine Urobilinogen <2.0 (<2.0) mg/dL Ur Leukocyte Esterase Moderate H (Negative) Urine RBC 3 (0-5) /hpf Urine WBC 5 (0-5) /hpf Ur Squamous Epith Cells 2 (0-4) /hpf Hyaline Casts 1 (0-2) /lpf Urine Mucus Rare H (None) /hpf Disposition Clinical Impression: Right flank pain, Back pain Disposition: HOME SELF-CARE Condition: Stable Instructions (If sedation given, give patient instructions): Flank Pain (ED) Additional Instructions: Please return to the Emergency Department if symptoms worsen or any other concerns. Go to scheduled MRI appointment as planned. Take pain medication as prescribed throughout the day to avoid severe flareups. Increase oral fluid intake. Is patient prescribed a controlled substance at d/c from ED?: No Referrals: Lv Sánchez DO [Primary Care Provider] - 1-2 days Time of Disposition: 00:58
[2020-09-11 23:16] LABS: Albumin 4.9 g/dL (3.5-5.0); Calcium 10.1 mg/dL (8.4-10.2); Total Bilirubin 0.6 mg/dL (0.2-1.3); Total Protein 8.2 g/dL (6.3-8.2)
[2020-09-11 23:18] LABS: Basophils # (A) 0.1 k/uL (0-0.2); Basophils % (A) 1 %; Eosinophils # (A) 0.3 k/uL (0-0.7); Eosinophils % (A) 3 %; HCT 50.2 % (34.0-46.0); HGB 16.2 gm/dL (11.4-16.0); Lymphocytes # (A) 3.2 k/uL (1.0-4.8); Lymphocytes % (A) 28 %; MCH 30.2 pg (25.0-35.0); MCHC 32.3 g/dL (31.0-37.0); MCV 93.5 fL (80.0-100.0); Mean Platelet Volume 8.1; Monocytes # (A) 0.6 k/uL (0-1.0); Monocytes % (A) 6 %; Neutrophils % (A) 62 %; Platelet Count 223 k/uL (150-450); RBC 5.37 m/uL (3.80-5.40); RDW 13.1 % (11.5-15.5); WBC 11.4 k/uL (3.8-10.6)
[2020-09-12 00:54] LABS: Appearance,Urine Clear (Clear); Bilirubin,Urine Negative (Negative); Blood,Urine Trace (Negative); Color,Urine Yellow; Glucose,Urine (UA) Negative (Negative); Hyaline Casts,Urine 1 /lpf (0-2); Ketones,Urine 1+ (Negative); Leukocyte Esterase,Urine Moderate (Negative); Mucus,Urine Rare /hpf; Nitrite,Urine Negative (Negative); Protein,Urine Trace (Negative); RBC,Urine 3 /hpf (0-5); Specific Gravity,Urine 1.027 (1.001-1.035); Squamous Epithelial Cell,Urine 2 /hpf (0-4); Urobilinogen,Urine <2.0 mg/dL (<2.0); WBC,Urine 5 /hpf (0-5)
[2020-09-12 01:30] VITALS: BP 137/61; PULSE 72; RESP 20; TEMP 98
== END 2020-09-12 01:15 | disposition home or self-care (01) ==
LOC: EC 21:41
DX: R10.9 Unspecified abdominal pain (principal); M54.9 Dorsalgia, unspecified
CPT/HCPCS: 36415; 80053; 82550; 83605; 85025; 81001; 99284; 96374; 96375; 96361; J1200; J2405; J1170

== ENCOUNTER → 2020-09-14 | Outpatient (CLI) | payer MEDICARE ==
--- NOTE | 2020-09-14 22:29 | MR ---
EXAMINATION TYPE: MR lumbar spine wo con DATE OF EXAM: 09/14/2020 COMPARISON: CT abdomen and pelvis September 05, 2020. HISTORY: Pain TECHNIQUE: Multiplanar, multisequence imaging of the lumbar spine is performed without IV contrast. I V contrast not given its exam was terminated prematurely in technologist with cytopathology technologist noted retained stimulator lead fragment. FINDINGS: Sagittal images of the lumbar spine show vertebral body heights to remain satisfactory. Per sistent slight levoconvex scoliotic curvature centered at L3 level with dextroconvex scoliosis greate r at lumbosacral junction. Bilateral pars defect L5 level seen better on CT with severe grade 1 anter olisthesis L5 on S1 redemonstrated. Multilevel disc desiccation. Moderate to advanced disc space narr owing greatest right L3-L4 level heterogeneous Modic type II endplate changes. Moderate disc space na rrowing at L5-S1 level. The conus medullaris is normal in position and signal ending mid L1 level. He terogeneous Modic type II endplate changes throughout the mid to lower lumbar spine. Susceptibility a rtifact posterior to lower lumbar spine noted correlates with retained stimulator fragment in the sub cutaneous tissue. Axial images show T12-L1 and L1-L2 levels to appear within normal limits. Axial images at L2-L3 level show mild/moderate facet degenerative changes and ligamentum flavum hyper trophy bilaterally effacing posterior lateral thecal sac and [id number] broad disc bulge effaci ng the anterior thecal sac. Mild bilateral anterior inferior neural foraminal narrowing is present. Axial images at L3-L4 level shows subtle anterolisthesis of L3 on L4 with moderate broad-based forester aide ior disc protrusion effacing anterior thecal sac and [id number] facet degenerative changes and ligamentum flavum hypertrophy causing posterior lateral thecal sac. There is moderate right and mild left-sided neural foraminal narrowing. Axial images at L4-L5 level show moderate to advanced facet degenerative changes bilaterally. There i s moderate broad-based posterior disc protrusion mildly effacing the anterior thecal sac. There is mi ld right and moderate to advanced left-sided neural foraminal narrowing noted. Axial images at L5-S1 level show significant spondylolisthesis with broad-based posterior disc protru belkys. There is advanced facet arthropathy bilaterally. There is moderate to severe bilateral neural f oraminal narrowing. There is partial visualization of left posterior lower thoracic subcutaneous stimulator lead. IMPRESSION: Suboptimal study. Persistent spondylolisthesis L5-S1 level. Multilevel degenerative gunn es as detailed above greatest L2-L3 through the L5-S1 levels.
== END ==
LOC: RADMRIMAIN 14:43
PROVIDERS: ATTEND Anesthesiology
DX: M43.17 Spondylolisthesis, lumbosacral region (principal); M47.817 Spondylosis without myelopathy or radiculopathy, lumbosacral region; M99.73 Connective tissue and disc stenosis of intervertebral foramina of lumbar region; M51.27 Other intervertebral disc displacement, lumbosacral region; M41.87 Other forms of scoliosis, lumbosacral region
CPT/HCPCS: 72148

== ENCOUNTER → 2020-09-22 | Outpatient (CLI) | payer MEDICARE ==
[2020-09-22 11:21] VITALS: BP 139/79; PULSE 81; RESP 16; TEMP 98.9
--- NOTE | 2020-09-22 12:26 | P.PAINCN ---
History of Present Illness - Reason for Consult Consult date: 09/22/20 - History of Present Illness This is 89 years old female with a chronic history of severe low back pain, started more than 10 years ago, but the intensity of the pain increased over the last few months, the pain is constant and increases with any activity interfere with the quality of life, she was admitted recently to [facility] because of severe low back pain and she was discharged home, patient had the MRI of the lumbar spine done showed multilevel lumbar degenerative disc disease and lumbar foraminal stenosis and lumbar spondylosis with lumbar facet arthropathy, she denies any fever or night sweats she denies any change in the bowel movement or urination Past Medical History Past Medical History: No Reported History, Cancer, CVA/TIA Additional Past Medical History / Comment(s): 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 History of Any Multi-Drug Resistant Organisms: None Reported Past Surgical History: Section, Cholecystectomy, Hysterectomy, Joint Replacement Additional Past Surgical History / Comment(s): total Left hip, right shoulder, right middle finger, ear surgery Past Anesthesia/Blood Transfusion Reactions: No Reported Reaction Past Psychological History: Depression Additional Psychological History / Comment(s): states "alittle depression" with covid restrictions Smoking Status: Former smoker Past Alcohol Use History: Rare Additional Past Alcohol Use History / Comment(s): quit smoking 51, smoked about 5 cigarettes /day, started age 16. Past Drug Use History: None Reported - Past Family History Mother Family Medical History: Cancer Father Family Medical History: Cancer Additional Family Medical History / Comment(s): colon cancer Sister(s) Family Medical History: Cancer Medications and Allergies Home Medications Medication Instructions Recorded Confirmed Type traMADol HCL 50 mg PO Q6H PRN 09/05/20 09/20/20 History Allergies Allergy/AdvReac Type Severity Reaction Status Date / Time hydrocodone AdvReac Nausea & Verified 09/20/20 14:13 Vomiting hydromorphone [From Dilaudid] AdvReac Nausea & Verified 09/20/20 14:13 Vomiting morphine AdvReac Nausea & Verified 09/20/20 14:13 Vomiting oxycodone AdvReac Nausea & Verified 09/20/20 14:13 Vomiting Physical Exam Vitals: Vital Signs Temp Pulse Resp BP Pulse Ox 09/22/20 11:17 98.9 F 81 16 139/79 95 Physical Examinations : -Constitutiona : Cooperative , not in acute distress . -HEENT : nech : supple , no Lymphadenopathy , normal thyroid size . : eyes : no ptosis , no icterus, no photophobia . - neurologic : Cranial nerve II to XII intact , no focal neurological deffecit . -psychatric : alert , oriented X 3 , appropriate affect , intact judgment and insight . -Lymphatic : no Lymphadenopathy . - musculoskeltal : Cervical Spine motor stregnth in the deltoid and biceps, normal right side , normal Left side motor stregnth biceps and the wrist extensors normal right side ,normal left side . motor stregnth in the triceps muscle . normal Right side , normal Left side deep tendon reflexes normal at the biceps , normal at Brachioradialis , normal at triceps. cervical facet loading test: Positive Bilaterally Spurling test= positive Right , positive left. Neck distraction test= positive Right , positive left. Gallo sign= positive right, positive left . Lumber spine moter stegnth lower extremities ,thigh and legs 5/5 Right side , 5/5 Left side deep tendon reflexes : normal Knee Jerk , normal ankle Jerk lumber facet Loading Test =positive Right , posiutive Left Range of motion of the lumbar spine Flexion 30 degrees, extension 10 degrees strait leg raising test = positive at 30 degree Fabere test= positive Right , and positive LT . Sever tenderness over the Sacroiliac joint on the Right , and Left sides Flexion and extension of the hip joint is associated with some pain more severe on the right side Results Comments: MRI of the lumbar spine = lumbar degenerative disc disease lumbar spondylosis with lumbar facet arthropathy, lumbar foraminal stenosis Lumbar spondylolisthesis Assessment and Plan Plan: Assessment and plan=1-lumbar spondylosis with lumbar facet arthropathy without myelopathy 2-lumbar degenerative disc disease. 3-lumbar stenosis. 4-lumbar spondylolisthesis. Patient would be good candidate diagnostic medial branch block lumbar area at L3, L4, L5, bilaterally and possible Time with Patient: Greater than 30 PQRS Measure Charge Sheet Measure #130: Documentation of Current Meds in Medical Chart: Patient's medications documented in chart Measure #226: Tobacco Use: Screen & Cessation Intervention: Pt not a tobacco user Measure #111: Pneumonia Vaccination: Pneumococcal vaccine NOT administered or previously given Measure #47: Advance Care Plan: Advance care planning discussed & documented, pt chose/unable to give Measure #412: Opioid Treatment Agreement: No documentation of signed opioid treatment agreement Measure #408: Opioid Therapy Follow-up Evaluation: Patient had NO f/u eval minimum every 3 months during opioid therapy Measure #317: Preventitive Care & Scrn High Bld Press & F/U: Normal blood pressure, f/u not required Measure #128: Body Mass Index (BMI) Screening & Follow-up: BMI documented ABOVE normal parameters - f/u documented Measure #131: Pain Assessment & Follow-up: Pain positive & plan documented, Follow-up scheduled Measure #431: Unhealthy Alcohol Use Preventative Care & Scrn: Patient not ident ified as an unhealthy alcohol user PQRS Narrative: Blood Pressure 139/79 Pain Intensity [Right] 0 Scale Used Numeric (1 - 10) Hx Alcohol Use (MH) No Home Medications: Ambulatory Orders traMADol HCL 50 mg PO Q6H PRN 09/05/20
== END ==
LOC: PNWHC3 11:04
PROVIDERS: ATTEND Specialist
DX: M47.816 Spondylosis without myelopathy or radiculopathy, lumbar region (principal); M48.061 Spinal stenosis, lumbar region without neurogenic claudication; M51.36 Other intervertebral disc degeneration, lumbar region; M43.16 Spondylolisthesis, lumbar region; F32.9 Major depressive disorder, single episode, unspecified; Z87.891 Personal history of nicotine dependence; Z86.73 Personal history of transient ischemic attack (TIA), and cerebral infarction without residual deficits
CPT/HCPCS: 99211

== ENCOUNTER 2020-10-15 09:36 | Day surgery (SDC) | payer MEDICARE ==
[2020-10-12 11:18] VITALS: BMI 29.8
[2020-10-15 10:13] VITALS: TEMP 98.5
[2020-10-15] MEDS: LACTATED RINGERS 1,000 ML IV SCH ×2 (10:30→10:48)
[2020-10-15] MEDS ORDERED: LIDOCAINE 1% (10MG/ML) FOR IV START INTRADERMA ONE (10:31)
[2020-10-15] MEDS ORDERED: methylPREDNISolone ACETATE 40 MG/ML 1 ML VIAL ONE (10:50)
[2020-10-15] MEDS ORDERED: ROPIVACAINE 5MG/ML 20ML VIAL ONE (10:50)
[2020-10-15] MEDS ORDERED: MIDAZOLAM 2 MG/2 ML VIAL ONE (10:51)
[2020-10-15] MEDS ORDERED: fentaNYL (PF) 50 MCG/ML 2 ML AMP ONE (10:51)
--- NOTE | 2020-10-15 11:10 | P.PCN ---
Date of Procedure: 10/15/20 Procedure(s) Performed: PREOPERATIVE DIAGNOSIS : 1- Lumbar spondylosis with Facet Arthropathy without myelopathy . 2- Lumber degenerative disc disease POSTOPERATIVE DIAGNOSIS: 1- Lumbar spondylosis with Facet Arthropathy without myelopathy . 2- Lumber degenerative disc disease PROCEDURE: Diagnostic bilateral L3 , L4 , and L5 medial branch block under fluoroscopy guidance(fluoroscopy images available in the radiology Department ) ( To target the facet joint between L4-5 , and L5-S1 ) ANESTHESIA: Monitored anesthesia care as per anesthesia department.. EBL: Minimal COMPLICATION: None PROCEDURE INDICATION: Chronic low back pain secondary to Facet arthropathy unresponsive to conservative treatment. PROCEDURE DESCRIPTION: the patient was seen and identified in the preop holding area , risks and benefits and possible complications of the procedure and alternative were discussed with the patient, and the patient agreed to proceed with the procedure and signed the consent and vital signs monitored during the procedure and fluoroscopy was used to maximize the benefit and accuracy of the needle placement, and sedation was given to decrease patient anxiety, patient was taken to the procedure room and placed in prone position vital signs monitored in the back prepped with chlorhexidine X3 then under strict sterile technique using a right oblique fluoroscopy ,the junction of the transverse process and the superior articulating process of the right L3 , L4 , and L5 vertebra which corresponding to the fluoroscopy image of the eye of the Jonny dog on the block side for the medial branches and subsequently , after local infiltration of skin and subcu tissuies with Ropivacaine 0.5 % , one mL at each level ,then 22-gauge Quincke-type needles , 3 needle was used , each one of them placed at the junction of the base of the transverse process and the superior articular process at the appropriate level, and the needle was advanced until the periosteum contacted, needle placement confirmed with AP oblique and lateral view and after appropriate needle placement confirmed, and after negative aspiration for heme and CSF and there was no paresthesia 1-1/2 mL of Ropivacaine 0.5% mixed with 20 mg Depo-Medrol , then half mL injected at each level after negative aspiration the needle subsequently removed and the same procedure repeated for the left side at left side at L3 , L4 and L5 levels. At the end of the procedure and the needles removed and a bandage applied after the skin was cleaned the cleaning solution patient taken to recovery room in stable condition and monitors in the recovery room for 20-30 minutes and discharged home in stable condition after discharge criteria met and patient will follow up with the pain clinic in 2-4 weeks
[2020-10-15] MEDS ORDERED: IV FLUID CONTINUATION 1,000 ML IV ONE ×2 (11:16)
--- NOTE | 2020-10-15 11:25 | FL ---
EXAMINATION TYPE: FL guided pain mgmt statistic DATE OF EXAM: 10/15/2020 HISTORY: Fluoroscopy time 12 seconds of fluoroscopy provided. IMPRESSION: 1. Fluoroscopy time.
[2020-10-15 11:32] VITALS: BP 115/72; PULSE 79; RESP 17
== END 2020-10-15 12:02 | disposition home or self-care (01) ==
LOC: ORPAIN 09:36
PROVIDERS: ATTEND Specialist
DX: G89.29 Other chronic pain (principal); M47.816 Spondylosis without myelopathy or radiculopathy, lumbar region; M51.36 Other intervertebral disc degeneration, lumbar region; M48.061 Spinal stenosis, lumbar region without neurogenic claudication; M43.16 Spondylolisthesis, lumbar region; I69.344 Monoplegia of lower limb following cerebral infarction affecting left non-dominant side; F32.9 Major depressive disorder, single episode, unspecified; Z85.828 Personal history of other malignant neoplasm of skin; Z86.010 Personal history of colon polyps; Z98.890 Other specified postprocedural states; Z90.49 Acquired absence of other specified parts of digestive tract; Z90.710 Acquired absence of both cervix and uterus; Z96.642 Presence of left artificial hip joint; Z87.891 Personal history of nicotine dependence; Z79.891 Long term (current) use of opiate analgesic; Z88.5 Allergy status to narcotic agent; Z97.2 Presence of dental prosthetic device (complete) (partial); Z80.0 Family history of malignant neoplasm of digestive organs; Z80.9 Family history of malignant neoplasm, unspecified
CPT/HCPCS: 64493; 64494; J2250; J1030; J3010; J2795

== ENCOUNTER → 2020-10-29 | Day surgery (SDC) | payer MEDICARE ==
[2020-10-28 11:22] VITALS: BMI 30.9
[~2020-10-29] MED LIST: IOPAMIDOL M200 10 ML VIAL ONE; LACTATED RINGERS 1,000 ML IV ONE; LIDOCAINE 1% (10MG/ML) FOR IV START INTRADERMA ONE; MIDAZOLAM 2 MG/2 ML VIAL ONE; ROPIVACAINE 5MG/ML 20ML VIAL ONE; TRIAMCINOLONE ACETONIDE 40 MG/ML 1 ML VIAL ONE; fentaNYL (PF) 50 MCG/ML 2 ML AMP ONE
[2020-10-29 08:31] VITALS: TEMP 96.8
--- NOTE | 2020-10-29 09:45 | FL ---
Fluoroscopy HISTORY: Pain 26 seconds fluoroscopy time supplied to the referring clinician. 3 intraoperative C-arm images docum ent the procedure. See dictated report from anesthesia.
[2020-10-29 09:47] VITALS: BP 144/70; PULSE 71; RESP 16
--- NOTE | 2020-11-10 15:48 | P.PCN ---
Date of Procedure: 10/29/20 Description of Procedure: PREOPERATIVE DIAGNOSIS : Lumbar spondylosis with Facet Arthropathy without myelopathy POSTOPERATIVE DIAGNOSIS: same PROCEDURE: second Diagnostic lumbar medial branch block with fluoroscopy at L3, L4, L5 [bilateral] which covers facets L4-5 and L5-S1 ANESTHESIA: Local anesthetic; moderate IV sedation Fluoroscopy was used for the procedure and images were saved in the radiology portion of the chart. Surgeon: Sidney Walker MD PROCEDURE INDICATION: Lumbar back pain without radiculopathy, not responsive to conservative management. PROCEDURE DESCRIPTION: the patient was seen and identified in the preop holding area , risks and benefits and possible complications of the procedure and alternatives were discussed with the patient, and the patient agreed to proceed with the procedure and signed the consent . IV was started , vital signs were monitored during the procedure and fluoroscopy was used to maximize the benefit and accuracy of the needle placement, and sedation was given to decrease patient anxiety. Patient was taken to the procedure room and placed in prone position. The lumbar region was prepped using chlorhexidineX-2. Under strict sterile technique using AP fluoroscopy the bilateral sacral ala were identified and using ipsilateral oblique fluoroscopy ,the junction of the transverse process and the superior articulating process of the L4, L5 vertebra which corresponds to the fluoroscopy image of the eye of the Jonny dog for the medial branches were identified. Subsequently, after local infiltration of skin with lidocaine 1% 0.2 mL at each level , a [22-gauge 5"/ 25-gauge 3.5"] Quincke- type needle was placed at the junction of the base of the transverse process and the superior articular process at the appropriate level as well as the sacral ala, and the needle was advanced until the periosteum contacted, needle placement confirmed with AP and oblique fluoroscopy, 0.2 mL of Isovue 200 per level was injected which revealed no vascular uptake and after negative aspiration. I malik up 5 mL of 0.5% ropivacaine and 1 mL of 40 mg/mL kenalog and injected 1 mL of this injectate at each level and the needle subsequently removed . A total of [2 levels injected bilaterally] At the end of the procedure and the needles were removed and a bandage applied after the skin was cleaned. The patient was taken to recovery room in stable condition and monitors in the recovery room for 20-30 minutes and discharged home in stable condition after discharge criteria met and patient will follow up in clinic in 2 weeks EBL: Minimal COMPLICATION: None.
== END ==
LOC: ORPAIN 07:56
PROVIDERS: ATTEND Anesthesiology
DX: M47.816 Spondylosis without myelopathy or radiculopathy, lumbar region (principal); Z86.73 Personal history of transient ischemic attack (TIA), and cerebral infarction without residual deficits; Z88.5 Allergy status to narcotic agent
CPT/HCPCS: 64493; 64494; J2250; J3301; J3010; Q9966; J2795

== ENCOUNTER → 2020-11-24 | Outpatient (CLI) | payer MEDICARE ==
--- NOTE | 2020-11-24 13:33 | P.PN ---
Subjective Progress Note Date: 11/24/20 This is an 89-year-old lady with history of lower back pain with occasional radiation to the left knee without paresthesia. The patient gets muscle spasm in the left leg which started after she had her stroke a few years ago. The patient denies any treated with anticoagulant currently she denies any history of diabetes. The patient failed to respond to spinal cord stimulation previously. She received 2 diagnostic lumbar medial branch blocks and she has significant re lief of her pain in the immediate period after her injection. She had at least 80% of pain relief. Patient denies new-onset weakness, bowel/bladder incontinence, or any other signs or symptoms of cauda equina syndrome. There are no signs of acute intoxication, and no indications of medication diversion or overuse. In addition to above, 13-point review of systems is also negative for chest pain , shortness of breath, changes in vision, changes in hearing, new onset weakness, abdominal pain, diarrhea, extreme fatigue, malaise, fever, skin changes, homicidal or suicidal ideation, or bowel or bladder incontinence. Vital Signs: Reviewed in EMR Gen: AAOx3, NAD HEENT: PERRLA,hearing grossly normal Pulm: resp unlabored Neck: supple, trachea midline Neuro exam of the lower extremities: Normal muscle strength bilaterally Straight leg raising test: Jonahtan's test: Range of motion of the lumbar spine: Facet loading test: Tenderness in the paravertebral musculature: Positive tenderness in the lumbar paravertebral musculature on the left side. Neuro: CN II-XII grossly intact, Imaging: Reviewed in EMR/chart Assessment: Lumbar spondylosis without radiculopathy Lumbar DDD Remote history of stroke not treated with anticoagulation currently Plan: 1. Explanation: Opioid and psychological risk scores were reviewed. Diagnoses, prognoses, and multiple treatment options including but not limited to physical therapy, interventional therapies, adjuvant medical therapies, narcotic medication therapies, and surgery were discussed with the patient and all questions were answered to the patient's satisfaction. 2. Opioid agreement: Signed with the patient and the patient is warned not to use opioids while driving or before driving and not to combine opioids with benzodiazepines or alcohol. 3. Counseling: The patient was counseled extensively on SMOKING CESSATION, BODY MASS INDEX, EXERCISE. Specifically, the patient was instructed regarding the importance of smoking cessation, obesity, and exercise in the context of both chronic pain and overall health. 4. Procedures: Schedule for lumbar medial branch RFA for levels L4 5 and L5-S1 bilaterally 5. Consultations: None 6. Investigations: None 7. Medications: No prescriptions today 8. Disposition: Proceed with the above-mentioned procedure as soon as possible 9. Maps were reviewed and were appropriate. Objective - Vital Signs Vital signs: Vital Signs Temp 97.6 F 11/24/20 13:25 Pulse 80 11/24/20 13:25 Resp 18 11/24/20 13:25 BP 150/61 11/24/20 13:25 Pulse Ox 96 11/24/20 13:25 Intake & Output 11/23/20 11/24/20 11/24/20 18:59 06:59 18:59 Weight 81.647 kg
== END ==
CPT/HCPCS: 99211

== ENCOUNTER 2020-12-24 08:52 | Day surgery (SDC) | payer MEDICARE ==
[~2020-12-24 08:52] MED LIST changes: -IOPAMIDOL M200 10 ML VIAL ONE; -LACTATED RINGERS 1,000 ML IV ONE; +LACTATED RINGERS 1,000 ML IV SCH; -LIDOCAINE 1% (10MG/ML) FOR IV START INTRADERMA ONE; -MIDAZOLAM 2 MG/2 ML VIAL ONE; -ROPIVACAINE 5MG/ML 20ML VIAL ONE; -TRIAMCINOLONE ACETONIDE 40 MG/ML 1 ML VIAL ONE; -fentaNYL (PF) 50 MCG/ML 2 ML AMP ONE
[2020-12-24 09:17] VITALS: RESP 16; TEMP 97.6
[2020-12-24] MEDS ORDERED: fentaNYL (PF) 50 MCG/ML 2 ML AMP ONE (09:28)
[2020-12-24] MEDS ORDERED: ROPIVACAINE 5MG/ML 20ML VIAL ONE (09:28)
[2020-12-24] MEDS ORDERED: MIDAZOLAM 2 MG/2 ML VIAL ONE (09:28)
[2020-12-24] MEDS ORDERED: methylPREDNISolone ACETATE 40 MG/ML 1 ML VIAL ONE (09:28)
--- NOTE | 2020-12-24 10:04 | P.PCN ---
Date of Procedure: 12/24/20 Procedure(s) Performed: PREOPERATIVE DIAGNOSIS: 1-Lumbar Spondylosis with Facet Arthropathy without myelopathy. 2- Lumber degenerative disc disease. POSTOPERATIVE DIAGNOSIS: 1- Lumbar Spondylosis with Facet Arthropathy without myelopathy. 2- Lumber degenerative disc disease. PROCEDURES : Bilateral Radiofrequency thermocoagulation, L3 , L4 , and L5 medial branch, with fluoroscopic guidance (fluoroscopy images available in the radiology department) ( to denervate the facet joint at L4-5 ,and L5-S1 levels ). ANESTHESIA: monitered anesthesia care as per anesthesia department . EBL: Minimal PROCEDURE INDICATION: The patient with low back pain secondary to lumbar facet arthropathy who had more than 50% relief of her pain with previous diagnostic lumbar medial branch block with bupivacaine. PROCEDURE DESCRIPTION / TECHNIQUE: The patient was seen and identified in the preoperative area. Risks, benefits, complications, including but not limited to risk of infection ,bleeding , allergic reactions to the medications and no complete pain releife , and alternatives were discussed with the patient, the patient agreed to proceed with the procedure and signed the consent. IV was started. Vital signs remained stable throughout the procedure. Patient was taken to the OR and time out was completed. The patient was placed in the prone position on the procedure table. The lumber area was prepped and draped in the usual sterile fashion. . Vital signs were closely monitored during the procedure .IV sedation was used during the procedure to decrease patients anxiety. Using AP and then oblique fluoroscopy, the ``eye of the Jonny dog corresponding to the connection between the superior and transverse articular processes of right L3, L4, and L5 were identified, marked, and localized with 1% lidocaine. Subsequently, a 18 [id number] radiofrequency cannula with a 10- mm active tip was advanced guided by fluoroscopy to each of the``eyes of the Jonny dog at right L3, L4, and L5. Each site then underwent sensory testing at 50 Hz and 0 to 1 volt and motor testing at 2.5 Hz and 0 to 3 volt with local stimulation, but no radicular symptoms down the legs. Thereafter each sites underwent radiofrequency thermocoagulation at 80 degrees celsius for 90 seconds after injecting 0.5 ml of PF Ropivacaine 1ml, then after the thermocoagulation done , 1 ml of the block solution containing Depo-Medrol 20 mg and 3 ml of Ropivacaine 0.5% was injected at the right L3 , L4 , and L5 , levels after negative aspiration of CSF and blood and with no paresthesias. Cannulas were retracted while injecting lidocaine 1% until the needle is out. The same procedure was repeated at the level of Left L3, L4, and L5 levels. At the end of the procedure, the skin was cleansed and bandages were applied. COMPLICATIONS: No acute complications. DISPOSITION / PLANS: The patient was placed in a supine position and transferred to the recovery area in a stable condition for observation and was discharged from the recovery room after meeting discharge criteria. Home discharge instructions given to the patient by the staff. The patient was reexamined prior to discharge. The patient will schedule a follow up in the clinic in 2-4 weeks.
[2020-12-24] MEDS ORDERED: IV FLUID CONTINUATION 700 ML IV ONE (10:06)
[2020-12-24 10:28] VITALS: BP 142/81; PULSE 75
--- NOTE | 2020-12-24 11:12 | FL ---
EXAMINATION TYPE: FL guided pain mgmt statistic DATE OF EXAM: 12/24/2020 HISTORY: Fluoroscopy time 25 seconds of fluoroscopy provided. IMPRESSION: 1. Fluoroscopy time.
== END 2020-12-24 10:46 | disposition home or self-care (01) ==
LOC: ORPAIN 08:52
PROVIDERS: ATTEND Specialist
DX: M47.816 Spondylosis without myelopathy or radiculopathy, lumbar region (principal); Z88.5 Allergy status to narcotic agent; I69.354 Hemiplegia and hemiparesis following cerebral infarction affecting left non-dominant side; Z97.2 Presence of dental prosthetic device (complete) (partial)
CPT/HCPCS: 64635; 64636; J2250; J1030; J3010; J2795

== ENCOUNTER → 2020-12-29 | Outpatient (CLI) | payer MEDICARE ==
--- NOTE | 2020-12-29 16:25 | CT ---
EXAMINATION TYPE: CT brain jann correa DATE OF EXAM: 12/29/2020 COMPARISON: None HISTORY: fall CT DLP: 1532 mGycm, Automated exposure control for dose reduction was used. CONTRAST: Patient injected with 0 mL of Isovue 300. CT of the brain is performed utilizing 3 mm thick sections through the posterior fossa and 3 mm thick sections through the remaining calvarium. Study is performed within 24 hours of arrival to the hospital. No abnormal hyperdensity is present to suggest an acute intracranial hemorrhage. No mass lesion is evident. No acute infarcts are evident. Periventricular white matter hypodensity is present, likely on the ba sis of chronic white matter ischemic changes. Ventricles and sulci are prominent for the patient age. Some hyperostosis frontalis internus is present, normal variant. Paranasal sinuses and mastoid air cells within the [id number] are clear. IMPRESSIONS: 1. Atrophy with periventricular white matter ischemic changes CT cervical spine. COMPARISON: None CT of the cervical spine is performed in the axial plane at 2 mm thick sections. Reconstructed image s in the coronal, and sagittal plane are reviewed on the computer. No acute fractures are evident. There is a cervical kyphosis centered at C4-5. There is loss of disc height at C3-4 C4-5 C5-6 and C6-7. There may be some fusion of C4-5. Spondylosi s is present. Vertebral body heights are preserved. No spinal canal stenosis is evident. Facet hypertrophy is present on the right at C2-3 with mild foraminal narrowing. Uncovertebral joint hypertrophy is present C4-5 with moderate to severe right and moderate left foraminal narrowing. Cent ral endplate spurring is mild to moderate anterior thecal sac compression C4-5 level. Uncovertebral j oint hypertrophy at C5-6 and severe bilateral foraminal stenosis. Some endplate spurring is mild ante rior thecal sac compression. IMPRESSIONS: 1. Degenerative disc changes with uncovertebral joint hypertrophy contributing to foraminal stenosis discussed above. 2. Some endplate spurring is mild to moderate anterior thecal sac compression C4-5 C5-6, greater at C 4-5. 3. Cervical kyphosis 4. No acute osseous abnormality
== END | disposition home or self-care (01) ==
LOC: RADCTMAIN 15:00
PROVIDERS: ATTEND Physician Assistant
DX: I67.82 Cerebral ischemia (principal); G31.9 Degenerative disease of nervous system, unspecified; R90.82 White matter disease, unspecified; M99.73 Connective tissue and disc stenosis of intervertebral foramina of lumbar region; M50.30 Other cervical disc degeneration, unspecified cervical region
CPT/HCPCS: 70450; 72125

== ENCOUNTER → 2021-02-09 | Outpatient (CLI) | payer MEDICARE ==
[2021-02-09 11:23] VITALS: PULSE 79; TEMP 98.5
[2021-02-09 11:26] VITALS: BP 159/73; RESP 18
--- NOTE | 2021-02-09 11:31 | P.PAINPG ---
Subjective Progress Note Date: 02/09/21 This is an 89-year-old lady with history of lower back pain with occasional radiation to the left knee without paresthesia. The patient gets muscle spasm in the left leg which started after she had her stroke a few years ago. The patient denies any treated with anticoagulant currently she denies any history of diabetes. The patient failed to respond to spinal cord stimulation previously. She received bilateral L4-5 and L5-S1 RFA. Here for followup today. She reports that she have a 50% relief and that overall she is relatively satisfied with the procedure. We discussed that we can repeat this every 6 months as needed. She did mention some numbness in her bilateral feet that she has had for many years. I did try to elucidate if it significantly related to pain, however she says is very difficult to explain. She has never taken a neuropathic pain medications in the past. I did discuss talking with her primary care provider about this and possibly be referred to an orthotics store with a manual to fit her with insoles make things more comfortable. I discussed neuropathic pain medications but did specifically note that it only helps with pain, not necessarily taking only numbness or tingling. I did also mention of side effects to sleepiness and drowsiness. At this time they will go see their PCP. Patient denies new-onset weakness, bowel/bladder incontinence, or any other signs or symptoms of cauda equina syndrome. There are no signs of acute intoxication, and no indications of medication diversion or overuse. In addition to above, 13-point review of systems is also negative for chest pain, shortness of breath, changes in vision, changes in hearing, new onset weakness, abdominal pain, diarrhea, extreme fatigue, malaise, fever, skin changes, homicidal or suicidal ideation, or bowel or bladder incontinence. Vital Signs: Reviewed in EMR Gen: AAOx3, NAD HEENT: PERRLA,hearing grossly normal Pulm: resp unlabored Neck: supple, trachea midline Neuro exam of the lower extremities: Normal muscle strength bilaterally Straight leg raising test: Jonathan's test: Range of motion of the lumbar spine: Facet loading test: Tenderness in the paravertebral musculature: Positive tenderness in the lumbar paravertebral musculature on the left side. Neuro: CN II-XII grossly intact, Imaging: Reviewed in EMR/chart Assessment: Lumbar spondylosis without radiculopathy Lumbar DDD Bilateral feet neuropathy Remote history of stroke not treated with anticoagulation currently Plan: - Return as needed. If she has significantly worsening neuropathic pain in her feet and can start her on a low-dose of gabapentin such as 100 mg at night. I have spent 23 minutes on review of the records, review of the imaging available, [id number] interaction with the patient, medication management, follow-up care coordination and record creation. Objective - Vital Signs Vital signs: Intake & Output 02/07/21 02/08/21 02/08/21 18:59 06:59 18:59 Weight 79.379 kg PQRS Measure Charge Sheet PQRS Narrative: Pain Intensity [Lower Back] 5 Hx Alcohol Use (MH) Yes: RARE Home Medications: Ambulatory Orders No Known Home Medications 10/12/20 Controlled Substance Measures - Controlled Substance Measures Is patient prescribed a controlled substance at discharge?: No
== END ==
LOC: PNWHC3 11:13
PROVIDERS: ATTEND Anesthesiology
DX: M47.816 Spondylosis without myelopathy or radiculopathy, lumbar region (principal); M51.36 Other intervertebral disc degeneration, lumbar region; G62.9 Polyneuropathy, unspecified; Z86.73 Personal history of transient ischemic attack (TIA), and cerebral infarction without residual deficits; Z88.5 Allergy status to narcotic agent
CPT/HCPCS: 99211